=== PATIENT | female | born 1935 | race Caucasian/White ===

== ENCOUNTER 2017-02-28 13:21 | Observation (INO) | payer OTHER, MEDICAID ==
[2017-02-28 13:38] LABS: % IMMATURE GRANULYOCYTES 0.9 % (0.0-1.1); ABSOLUTE IMMATURE GRANULOCYTES 0.08 10^3/uL (0.00-0.10); ADD DIFF? NO; ADD MORPH? NO; ADD SCAN? NO; ATYPICAL LYMPHOCYTE FLAG 0 (0-99); FRAGMENT RBC FLAG 0 (0-99); HEMATOCRIT 38.7 % (38.0-47.0); HEMOGLOBIN 12.3 g/dL (12.6-16.3); LEFT SHIFT FLG 0 (0-99); LIPEMIA HEMOLYSIS FLAG 80 (0-99); MEAN CELL HEMOGLOBIN 27.8 pg (27.9-34.1); MEAN CELL HEMOGLOBIN CONCENTR. 31.8 g/dL (32.4-36.7); MEAN CELL VOLUME 87.6 fL (81.5-99.8); MEAN PLATELET VOLUME 9.7 fL (8.7-11.7); PLATELET CLUMPS FLAG 40 (0-99); PLATELET COUNT 240 10^3/uL (150-400); RED BLOOD CELL COUNT 4.42 10^6/uL (4.18-5.33); RED CELL DISTRIBUTION WIDTH 14.6 % (11.5-15.2)
--- NOTE | 2017-02-28 13:52 | CPEKG ---
Heart Rate: 59 RR Interval: 1017 P-R Interval: 152 QRSD Interval: 104 QT Interval: 440 QTC Interval: 436 P [place]: 60 QRS [place]: 32 T Wave [place]: 20 EKG Severity - NORMAL ECG - EKG Impression: SINUS RHYTHM Electronically Signed By: Mady De Leon 28-Feb-2017 14:56:10
--- NOTE | 2017-02-28 13:57 | EDPHY ---
H & P Stated Complaint: syncopal episode at lunch Time Seen by Provider: 02/28/17 13:28 HPI/ROS: CHIEF COMPLAINT: Possible syncope HISTORY OF PRESENT ILLNESS: 81 y/o female with a history of atrial fibrillation on Eliquis arriving with her daughters via EMS after a possible syncopal episode at rest this afternoon. Today she was sitting and reading the paper when she noticed her arms began to feel tired, but otherwise felt normal. She then does not remember anything until she regained consciousness on the floor. She immediately vomited, broke out in a cold sweat, and felt lightheaded following this loss of consciousness. She denies trauma from the event today or recent illness. She has a history that includes hypertension, PE, atrial fibrillation, and takes Topamax for prior syncopes or possible absence seizures. Her daughter notes she has been taking Robaxin for back pain and took at least one dose today. REVIEW OF SYSTEMS: Constitutional: see HPI Eyes: No visual changes ENT: No sore throat Respiratory: No cough, no shortness of breath Cardiac: No chest pain Gastrointestinal: see HPI Genitourinary: No hematuria, no dysuria Musculoskeletal: No leg pain or swelling Skin: No rash Neurological: see HPI Psychiatric: No depression - Personal History Current Tetanus Diphtheria and Acellular Pertussis (TDAP): Yes Tetanus Vaccine Date: OVER 10 YRS - Medical/Surgical History PMH: PMH includes: 1. Spinal stenosis 2. Hypertension 3. GERD 4. PE 5. Hypothyroidism 6. Arthritis 7. Kidney cancer 2012 - right partial nephrectomy 8. Osteopenia 9. Sleep apnea 10. Diastolic dysfunction 11. Falls 12. Seizure/syncopes without formal seizure diagnosis - Topamax 13. Right rotator cuff repair 14. Cholecystectomy 15. Atrial fibrillation - Eliquis Prior history obtained from patient's notes. Hx Asthma: Yes Hx Chronic Respiratory Disease: No Hx Diabetes: No Hx Cardiac Disease: Yes Hx Renal Disease: Yes Hx Cirrhosis: No Hx Alcoholism: No Hx HIV/AIDS: No Hx Splenectomy or Spleen Trauma: No Other PMH: PMH: GERD, spinal stenosis, HTN, PE, Arthritis, osteopenia, JOSEPHINE, Diastolic Dysfunction, Falls. Kidney ca with partial removal of right kidney. 2012. Atrial Fibrillation. PSH: Cholecystectomy, Appendectomy, Tonsilectomy. right shoulder surgery, right partial nephrectomy - Social History Smoking Status: Former smoker Additional Social History: Daughters at bedside. Former smoker. PCP: Dr. Andersen. Neurologist: Dr. Baker. - Physical Exam Exam: General Appearance: Alert, elderly, no distress, hypotensive at 96/58 Eyes: Pupils equal and round, no conjunctival pallor or injection ENT, Mouth: Mucous membranes moist Neck: Normal inspection Respiratory: Lungs are clear to auscultation Cardiovascular: Regular rate and rhythm Gastrointestinal: Abdomen is soft and non- tender Neurological: A&O, nonfocal, normal gait Skin: Warm and dry, no rash Extremities: Nontender, no pedal edema Psychiatric: Mood and affect normal Constitutional: Initial Vital Signs Temperature (C) 36.7 C 02/28/17 13:21 Heart Rate 63 02/28/17 13:21 Respiratory Rate 16 02/28/17 13:21 Blood Pressure 96/58 L 02/28/17 13:21 O2 Sat (%) 96 02/28/17 13:21 O2 Delivery Mode Room Air Allergies/Adverse Reactions: Iodinated Contrast- Oral and IV Dye [Iodinated Contrast Media - IV Dye] Allergy (Verified 04/30/15 11:40) CATS Allergy (Mild, Uncoded 04/30/15 11:40) SNEEZE/ITCHY NOSE ENVIRONMENTAL Allergy (Mild, Uncoded 04/30/15 11:40) RUNNY NOSE/SNEEZING Home Medications: Medication Instructions Recorded Aspirin [Aspirin 81mg (*)] 81 mg PO HS 02/07/14 Atorvastatin Calcium [Lipitor 40 40 mg PO DAILY 02/07/14 mg (*)] Carvedilol [Coreg (*)] 12.5 mg PO BIDMEAL 02/07/14 Cetirizine [ZyrTEC 10 mg (*)] 10 mg PO BID 02/07/14 Cholecalciferol Vit D3 [Vitamin D3 6,000 units PO DAILY 02/07/14 2000 units tab (OTC)] Hydrochlorothiazide [HCTZ (*)] 12.5 mg PO DAILY 02/07/14 Levothyroxine [Synthroid 88 mcg 88 mcg PO DAILY06 02/07/14 (*)] Lisinopril [Zestril 10 mg (*)] 10 mg PO DAILY 02/07/14 Pantoprazole Sodium [Protonix 40mg 40 mg PO DAILY 02/07/14 (*)] Topiramate 50 mg PO BID 02/07/14 buPROPion XL [Wellbutrin Xl] 300 mg PO DAILY 02/07/14 Apixaban [Eliquis] 2.5 mg PO BID 02/28/17 Ferrous Sulfate [Ferrous Sulf 325 325 mg PO DAILY 02/28/17 MG (*)] Herbals/Supplements -Info Only 1 ea PO DAILY 02/28/17 Liothyronine Sodium [Cytomel 5 mcg 5 mcg PO DAILY 02/28/17 (*)] Methocarbamol [Robaxin 500 mg (*)] 750 mg PO TID 02/28/17 Vitamin B Complex [B Complex] 1 each PO DAILY 02/28/17 Medical Decision Making - Diagnostics EKG Interpretation: EKG interpreted by me reveals normal sinus rhythm, no ST or T segment changes. Artifact present. Interpretation: Normal EKG ED Course/Re-evaluation: This patient presents after a true syncopal episode. Stat EKG reveals no evidence of ischemia or dysrhythmia. Upon assessment, she is asymptomatic and there is no sign of injury. Her exam is unremarkable. She is hypotensive at 96/ 58, which is unusual for her. IV normal saline 500 mL given by EMS. I've recommended admission for observation on telemetry given her concerning presentation and medical history, which the patient agrees to. Plan for IV and lab work. Dr. Gee's office paged. [id number]: Consulted with Janee Gaxiola for Dr. Gee, patient's leak hunter. She accepts admission to the PCU. The patient continued to be asymptomatic throughout her emergency department stay. reinsurance claims analyst revealed normal sinus rhythm throughout. Differential Diagnosis: Differential diagnosis includes though is not limited to cardiac dysrhythmia, CVA, TIA, GI bleed, sepsis, hypoglycemia. - Data Points Medications Given: Apixaban (Eliquis) 2.5 mg PO BID [facility] Stop: 08/27/17 20:59 Last Admin: 03/01/17 08:34 Dose: 2.5 mg Aspirin (Aspirin) 81 mg PO HS MER Stop: 08/27/17 20:59 Last Admin: 02/28/17 20:25 Dose: 81 mg Atorvastatin Calcium (Lipitor) 40 mg PO DAILY [facility] Stop: 08/28/17 08:59 Last Admin: 03/01/17 08:32 Dose: 40 mg Bupropion HCl (Wellbutrin Xl) 300 mg PO DAILY [facility] Stop: 08/28/17 08:59 Last Admin: 03/01/17 08:33 Dose: 300 mg Carvedilol (Coreg) 6.25 mg PO BIDMEAL [facility] Stop: 08/27/17 17:59 Last Admin: 03/01/17 10:12 Dose: 6.25 mg Cetirizine HCl (Zyrtec) 10 mg PO BID [facility] Stop: 08/27/17 20:59 Last Admin: 03/01/17 08:33 Dose: 10 mg Cholecalciferol (Vitamin D) 6,000 units PO DAILY [facility] Stop: 08/28/17 08:59 Last Admin: 03/01/17 08:32 Dose: 6,000 units Ferrous Sulfate (Ferrous Sulfate) 325 mg PO DAILY [facility] Stop: 08/28/17 08:59 Last Admin: 03/01/17 08:33 Dose: 325 mg Hydrochlorothiazide (Microzide) 12.5 mg PO DAILY [facility] Stop: 08/28/17 08:59 Last Admin: 03/01/17 08:34 Dose: 12.5 mg Levothyroxine Sodium (Synthroid) 88 mcg PO DAILY06 [facility] Stop: 08/28/17 05:59 Last Admin: 03/01/17 05:28 Dose: 88 mcg Liothyronine Sodium (Cytomel) 5 mcg PO DAILY [facility] Stop: 08/28/17 08:59 Last Admin: 03/01/17 08:33 Dose: 5 mcg Pantoprazole Sodium (Protonix) 40 mg PO DAILY [facility] Stop: 08/28/17 08:59 Last Admin: 03/01/17 08:33 Dose: 40 mg Senna/Docusate Sodium (Senokot-S) 1 - 2 tab PO BID [facility] PRN Reason: Protocol Stop: 08/27/17 20:59 Last Admin: 03/01/17 08:32 Dose: 2 tab Topiramate (Topamax) 50 mg PO BID [facility] Stop: 08/27/17 20:59 Last Admin: 03/01/17 08:33 Dose: 50 mg Vitamin B Complex (Vitamin B Complex) 1 ea PO DAILY [facility] Stop: 08/28/17 08:59 Last Admin: 03/01/17 08:32 Dose: 1 ea Discontinued Medications Carvedilol (Coreg) 12.5 mg PO BIDMEAL [facility] Stop: 08/27/17 17:59 Last Admin: 03/01/17 08:00 Dose: Not Given Departure - Departure Disposition: [facility] Inpatient Acute Clinical Impression: Syncope Qualifiers: Syncope type: unspecified Qualified Code(s): R55 - Syncope and collapse Condition: Fair Report Scribed for: Mady De Leon Report Scribed by: Mary Ugalde Date of Report: 02/28/17 Time of Report: 13:57 Physician Review and Approval Statement: 02/28/17 13:57 Portions of this note were transcribed by a medical appointment scheduler. I personally performed a history, physical exam, medical decision making, and confirmed accuracy of information the transcribed note.
[2017-02-28 14:15] LABS: ANION GAP 12 mEq/L (8-16); CARBON DIOXIDE 18 mEq/l (22-31); CHLORIDE 110 mEq/L (97-110); CREATININE 1.6 mg/dL (0.6-1.0); GLOMERULAR FILTRATION RATE 31; GLUCOSE 108 mg/dL (70-100); POTASSIUM 4.1 mEq/L (3.5-5.2); SODIUM 140 mEq/L (134-144)
[2017-02-28 14:28] LABS: TROPONIN I < 0.012 ng/mL (0-0.034)
[2017-02-28 14:42] LABS: CALCIUM 9.6 mg/dL (8.5-10.4)
--- NOTE | 2017-02-28 17:10 | SOAPPROG ---
SOAP Progress Note Assessment/Plan: Assessment: Plan: 02/28/17 17:31 Syncopal episode: Per pt, has had several syncopal episodes over her life. This episode occurred while pt sitting in chair, and subsequently associated with nausea, vomiting, diaphoresis, concerning for cardiac etiology, possible arrhythmia, though sx have resolved. EKG was normal in ED. No hx of cardiac arrhythmia, though it is appropriate for her to be on telemetry. Initial troponin negative. She does have a hx of CAD with coronary calcium score of 443 in 08/09. Score was very stable at that time. Her last echo was in 2014, so will recheck that, given hx of diastolic dysfunction. No suggestion of CHF on exam today. Other possible etiology for her sx may be over use of robaxin, and possible mild dehydration. Hypothyroidism: on replacement Sleep apnea: on CPAP, and RN has contacted daughter to bring in her machine CAD: stable heart disease, as noted above Hx PE: on Eliquis. Has not tolerated higher dose due to epistaxis Hypertension: well controlled on lisinopril, hctz CHF: clinically no suggestion of CHF. States her diuretic dose varies, and is currently taking hctz 25mg 1/2 tab daily. Depression: stable on fluoxetine, bupropion Hyperlipidemia: on atorvastatin, welchol Chronic kidney disease: creatinine slightly higher than usual. Pt encouraged to drink more. Back pain/immobility: recently placed on Robaxin for thoracic back pain. Was referred to [facility] but hasn't followed up. Interested in PT/OT assessment while here in hospital, and possible home PT on discharge. Will hold Robaxin for now. Recurrent UTI: on nitrofurantoin suppressive dose DVT prophylaxis: on Eliquis 02/28/17 17:55 Subjective: 81 yo woman with multiple medical problems was sitting in her chair, reading the paper. Noticed her arms feeling tired, heavy, and then the next thing she knew was that her caregiver was trying to get her to wake up. Didn't fall out of her chair, but caregiver came out of bedroom after making bed and found her slumped over in her chair. Pt woke, was in a cold sweat, and felt nauseated, dizzy. Vomited. 911 called. Per pt, BP was low in ambulance, and she vomited en route to the hospital. She hasn't had any further nausea, vomiting, diaphoresis. She denies any chest pain, irregular heart rhythms. She felt somewhat short of breath, but that has resolved. She still feels slightly dizzy and drained. Lives alone. Has caregivers who are with her from 10-4 daily 6 days per week. She is somewhat ambulatory with a walker, but mostly spends her time sitting. She has had syncopal episodes in the past, and is on topiramate, though has not been diagnosed with seizure disorder. She hasn't had a syncopal episode in several years. Of note, she was recently placed on robaxin 500mg 1.5 tablets 3 times daily, but states she has been taking it every 4 hours for the last 3 days. She has been feeling a little dopey, out of it, but it has helped her back pain. In ED, labs were minimally abnormal. Hgb was slightly low at 12.3, hct normal. BUN 39, creatinine 1.6, which is slightly higher than usual for her. With her chronic kidney disease and her diastolic dysfunction, fluid balance is tricky. She has been advised to drink 64 oz daily, and hadn't been drinking that much in the last couple of days. EKG showed normal sinus rhythm, rate 59. Troponin was negative. Objective: Vital Signs Temp Pulse Resp BP Pulse Ox 36.8 C 61 17 115/48 L 97 02/28/17 15:08 02/28/17 15:08 02/28/17 15:08 02/28/17 15:08 02/28/17 15:08 Laboratory Results 02/28/17 Unknown 02/28/17 Unknown General: obese woman, comfortable, alert HEENT: PERRL, EOMI without nystagmus. O/P without erythema, lesions. Neck: no masses, adenopathy. Thyroid not enlarged, no tenderness. No carotid bruits Lungs: clear bilaterally Cardiovascular: RRR with 2/6 systolic murmur LUSB Abdomen: +bowel sounds, soft, NT. No hepatosplenomegaly, masses Extremities: no clubbing, cyanosis, edema. Bruising noted on shins Neurologic: alert, moving all extremities Psychiatric: pleasant, cooperative, normal mood, affect ICD10 Worksheet Patient Problems: Problems Problem Status Onset Syncope Acute renal cell carcinoma Active
[2017-02-28] MEDS ORDERED: ONDANSETRON DISINTEGRATING 4 MG TAB PO PRN (17:46)
[2017-02-28] MEDS ORDERED: MAGNESIUM HYDROXIDE 30 ML UDCUP PO PRN (17:46)
[2017-02-28] MEDS ORDERED: LACTULOSE 20 GM/30 ML UDCUP PO PRN (17:46)
[2017-02-28] MEDS ORDERED: ONDANSETRON 4 MG/2 ML VIAL IVP PRN (17:46)
[2017-02-28] MEDS ORDERED: BISACODYL 10 MG SUPP PR PRN (17:46)
[2017-02-28] MEDS ORDERED: POLYETHYLENE GLYCOL 3350 17 GM PKT PO PRN (17:46)
[2017-02-28] MEDS ORDERED: ACETAMINOPHEN 325 MG TAB PO PRN (17:46)
--- NOTE | 2017-02-28 19:14 | GHP ---
[f rep st] HISTORY AND PHYSICAL DATE OF ADMISSION: 02/28/2017 HISTORY OF PRESENT ILLNESS: The patient is an 81-year-old woman with a history of multiple medical problems, who was sitting at home in her chair reading the paper. She began to notice that her arms were feeling tired and heavy, and then the next thing she knew, she woke up to her caregiver trying to wake her up. She had not fallen out of her chair, but her caregiver had come out of the bedroom after making the bed and found her slumped over in her chair. When she awoke up, she was in a cold sweat and felt nauseated and dizzy. She vomited, 911 was called. Per patient, her blood pressure was low in the ambulance, and she vomited on route to the hospital. She has not had further nausea, vomiting , or diaphoresis. She denies any chest pain or irregular heart rhythms. She felt somewhat short of breath, but that has resolved. She is still feeling slightly dizzy and drained. She lives alone. She has caregivers who are with her from 10 to 4 p.m. daily 6 days per week. She is somewhat ambulatory with a walker, but mostly spends her time sitting. She has had several syncopal episodes in the past and is on topiramate, though has not been diagnosed with a seizure disorder. She has not had a syncopal episode in several years. Of note, she was recently placed on Robaxin 500 mg 1- 1/2 tablets 3 times daily, but states that she has been taking it every 4 hours for the last 3 days. She has been feeling a little dopey and out of it, but it has helped her back pain. In the Emergency Department, her labs were minimally abnormal with a hemoglobin that was slightly low at 12.3, hematocrit was normal, BUN was 39, creatinine was 1.6, which is slightly higher than usual for her. With her chronic kidney disease and her diastolic dysfunction, fluid balance is tricky. She has been advised to drink 64 ounces of fluids daily, and had not been drinking that much in the last couple of days. EKG showed normal sinus rhythm with a rate of 59. Initial troponin was negative. PAST MEDICAL HISTORY: 1. Sleep apnea. 2. Asthma. 3. Hyperlipidemia. 4. Hypertension. 5. Hypothyroidism. 6. Pulmonary emboli. 7. Depression. 8. Coronary artery disease. 9. Chronic kidney disease. 10. Congestive heart failure with diastolic dysfunction. MEDICATIONS: Fluoxetine 20 mg daily, Levoxyl 88 mcg daily, Cytomel 5 mcg daily , hydrochlorothiazide 25 mg 1/2 tablet daily, nitrofurantoin macro crystal 50 mg daily, Creon 12,000 units 2 capsules 3 times daily, carvedilol 12.5 mg twice daily, Protonix 40 mg daily, lisinopril 10 mg daily, bupropion 300 mg sustained release daily, Eliquis 2.5 mg twice a day, Welchol 3.75 g once daily, Atorvastatin 40 mg daily, topiramate 50 mg twice a day, Robaxin 500 mg 1.5 tablets 3 times daily, cranberry extract 250 mg 2 tablets daily, Lorazepam 1 mg p.r.n., aspirin 81 mg daily, krill oil daily, vitamin D daily, vitamin K daily, B complex daily, iron daily, stool softener daily, and magnesium daily. ALLERGIES: Cipro causes pruritus and possibly Meridia. PAST SURGICAL HISTORY: Partial nephrectomy for renal cell carcinoma, tonsillectomy, appendectomy, endometrial tumor excision, tubal ligation, cholecystectomy, right shoulder rotator cuff repair. FAMILY HISTORY: Her mother had uterine cancer at the age of 83. SOCIAL HISTORY: She is retired and lives alone. She has 4 children. She does have caregivers who come in from 10 to 4 p.m. 6 days per week. She is a former smoker. REVIEW OF SYSTEMS: GENERAL: No fever or chills. She has had a gradual substantial weight loss over the last several years. HEENT: No rhinitis or sore throat. Complaining of mild residual dizziness from earlier today, though much improved. RESPIRATORY: Dry cough for weeks, though this is also improving. Mild shortness of breath as per HPI. CARDIOVASCULAR: No chest pain or abnormal heart rhythms. No lower extremity edema. She is minimally active. Recent nausea, vomiting, diaphoresis as per HPI have resolved. GASTROINTESTINAL: Nausea and vomiting as per HPI. Mild lower abdominal discomfort earlier today has resolved. No diarrhea or constipation. GENITOURINARY: No dysuria. MUSCULOSKELETAL: Thoracic back pain. NEUROLOGIC: The patient reports poor balance with a history of falls. Walks with a walker. PSYCHIATRIC: Depression is stable on medication. LABS: Hemoglobin of 12.3, hematocrit 38.7, platelet count 240, sodium 140, potassium 4.1, chloride 110, bicarb 18, BUN 39, creatinine 1.6, troponin less than 0.012. Vital Signs: BP 115/48 heart rate 61 respiratory rate 17 O2 saturation 97% RA temp 36.8 C Physical Exam General: obese woman, well-appearing, comfortable, alert HEENT: PERRL, EOMI without nystagmus. Oropharynx without erythema, exudate, lesions Neck: no masses, adenopathy. Thyroid not enlarged, non-tender. No carotid bruits Lungs: clear to auscultation bilaterally Cardiovascular: RRR with 2/6 systolic murmur LUSB Abdomen: bowel sounds present, soft, non-distended, non-tender. No hepatosplenomegaly or masses palpable Extremities: no clubbing, cyanosis, edema. Ecchymoses noted on both lower extremities Psychiatric: pleasant, cooperative, with normal mood, affect ASSESSMENT AND PLAN: 1. Syncopal episode. Per patient, she has had several syncopal episodes over the course of her life. This episode occurred while she was sitting in a chair , and was subsequently associated with nausea, vomiting, and diuresis. Concerning for cardiac etiology, such as a possible arrhythmia, although her symptoms have resolved. Her EKG was normal in the ED. There is no history of cardiac arrhythmia, though it is appropriate for her to be on telemetry for monitoring. Her initial troponin was negative. She has a history of coronary artery disease with a coronary calcium score of 443 in July of 2015. Her score was very stable at that time. She has not had it repeated since then. Her last echo was in 2014. So, will recheck that given her history of diastolic dysfunction. There is no suggestion of CHF on exam today. Other possible etiologies for her symptoms may be the overuse of Robaxin and possibly mild dehydration. 2. Hypothyroidism, currently euthyroid, on replacement. 3. Sleep apnea. She is on CPAP. RN has contacted her daughter to bring in her machine. 4. Coronary artery disease. Stable heart disease as noted above. 5. History of pulmonary emboli, on Eliquis. She has not tolerated higher doses due to epistaxis. 6. Hypertension, currently well controlled on lisinopril/hydrochlorothiazide. 7. Congestive heart failure. Clinically no suggestion of CHF. Does state that her diuretic dose varies, and is currently taking hydrochlorothiazide 12.5 mg daily. We will go ahead and check BNP. 8. Depression, stable on fluoxetine and bupropion. 9. Hyperlipidemia, on atorvastatin and Welchol. 10. Chronic kidney disease. Creatinine is slightly higher than usual. We will encourage her to drink more fluids. 11. Back pain/immobility. Recently placed on Robaxin for thoracic back pain. She was referred to [facility], but has not followed up. Is interested in PT/OT assessment while here in hospital, and possible home PT on discharge. We will hold Robaxin for now. 12. Recurrent urinary tract infection, on nitrofurantoin suppressive dose. 13. Deep vein thrombosis prophylaxis, on Eliquis. /[id number]/MODL MTDD
[2017-02-28 19:28] LABS: TROPONIN I < 0.012 ng/mL (0-0.034)
[2017-02-28] MEDS: CARVEDILOL 6.25 MG TAB PO SCH (20:21)
[2017-02-28] MEDS: ASPIRIN 81 MG CHEWABLE TAB PO SCH (20:25)
[2017-02-28] MEDS: CETIRIZINE 10 MG TAB PO SCH (20:25)
[2017-02-28] MEDS: APIXABAN 2.5 MG TAB PO SCH (20:26)
[2017-02-28] MEDS: TOPIRAMATE 25 MG TAB PO SCH (20:26)
[2017-02-28] MEDS: SENNOSIDES/DOCUSATE SODIUM TAB PO SCH (20:27)
[2017-02-28] MEDS ORDERED: NON-FORMULARY NEW DRUG (Topiramate [Topiramate] 50 MG) PO SCH (21:00)
[2017-03-01 04:54] LABS: ANION GAP 7 mEq/L (8-16); CARBON DIOXIDE 19 mEq/l (22-31); CHLORIDE 113 mEq/L (97-110); CREATININE 1.4 mg/dL (0.6-1.0); GLOMERULAR FILTRATION RATE 36; GLUCOSE 101 mg/dL (70-100); POTASSIUM 4.6 mEq/L (3.5-5.2); SODIUM 139 mEq/L (134-144)
[2017-03-01] MEDS ORDERED: LEVOTHYROXINE 88 MCG TAB PO SCH (06:00)
[2017-03-01] MEDS: CARVEDILOL 6.25 MG TAB PO SCH ×3 (08:00→17:18)
[2017-03-01] MEDS: SENNOSIDES/DOCUSATE SODIUM TAB PO SCH ×2 (08:32→20:05)
[2017-03-01] MEDS: TOPIRAMATE 25 MG TAB PO SCH ×2 (08:33→20:04)
[2017-03-01] MEDS: CETIRIZINE 10 MG TAB PO SCH ×2 (08:33→20:04)
[2017-03-01] MEDS: APIXABAN 2.5 MG TAB PO SCH ×2 (08:34→20:04)
--- NOTE | 2017-03-01 08:38 | SOAPPROG ---
SOAP Progress Note Assessment/Plan: Assessment: 81 yo female admitted for observation following possible syncopal episode vs seizure vs fell asleep with untreated JOSEPHINE, found in chair unresponsive by caregiver. Woke up with vigorous stimuli and was confused, vomited. Found to be in SR on admit. Remained in SR over night with vitals stable, slightly hypotensive with SBP in 90s, though asymptomatic. Plan: Echocardiogram today to eval cardiac output. Also will check MRI of brain given hx of renal cell carcinoma r/o mets to brain. If unremarkable will plan for discharge home this afternoon and outpatient EEG. 03/01/17 08:38 Subjective: Kandis is resting comfortably in bed this morning. She denies any chest pain, palpitations, dizziness, lightheadedness, or further syncopal episodes since admission. Overall she says she is feeling well. Objective: Vital Signs Temp Pulse Resp BP Pulse Ox 99.5 F 65 10 L 94/52 L 97 03/01/17 07:42 03/01/17 07:42 03/01/17 07:42 03/01/17 07:42 03/01/17 07:42 Laboratory Results 02/28/17 Unknown 03/01/17 04:20 02/28/17 03/01/17 03/02/17 05:59 05:59 05:59 Intake Total 85 Balance 85 Gen- AAOx3, vitals stable over night, slightly hypotensive this AM- 94/52, HR 65 , asymptomatic. Head- normocephalic, atraumatic CV- grade II holosystolic murmur, S1, S2, RRR Resp- LCTAB, no rhonchi, rales, wheezes GI- positive bowel sounds Skin- warm, dry, intact Neuro- grossly intact Psych- normal mental status, normal mood and affect ICD10 Worksheet Patient Problems: Problems Problem Status Onset Syncope Acute renal cell carcinoma Active
[2017-03-01] MEDS ORDERED: HYDROCHLOROTHIAZIDE 12.5 MG CAP PO SCH (09:00)
[2017-03-01] MEDS ORDERED: ATORVASTATIN CALCIUM 40 MG TAB PO SCH (09:00)
[2017-03-01] MEDS ORDERED: CHOLECALCIFEROL VIT D3 2,000 UNITS TAB/CAP PO SCH (09:00)
[2017-03-01] MEDS ORDERED: LIOTHYRONINE SODIUM 5 MCG TAB PO SCH (09:00)
[2017-03-01] MEDS ORDERED: FERROUS SULFATE 325 MG TAB PO SCH (09:00)
[2017-03-01] MEDS ORDERED: Herbals/Supplements -Info Only PO SCH (09:00)
[2017-03-01] MEDS ORDERED: VITAMIN B COMPLEX 1 EA CAP/TAB PO SCH (09:00)
[2017-03-01] MEDS ORDERED: buPROPion XL 150 MG TAB PO SCH (09:00)
[2017-03-01] MEDS ORDERED: PANTOPRAZOLE SODIUM 40 MG TAB PO SCH (09:00)
--- NOTE | 2017-03-01 11:31 | ECHO ---
[id number] + + [address] : : [place] [address] : : [phone] + + Adult Echocardiographic Report + -----+ :Name: JOSE RAMON Cameronjoe Date: 03/01/2017 09:15 AM : : Hospital Admission Number: [id number] Location : 213: :: 1935 Gender: Female Height: 64 in : :Age: 81 yrs Race: WH Weight: 182 lb : :Reason For Study: Syncope : : BSA: 1.9 meters2 : + -----+ MMode/2D Measurements \T\ Calculations IVSd: 0.95 cm LVIDd: 4.5 cm FS: 48.0 % Ao root diam: LVPWd: 1.1 cm LVIDs: 2.3 cm EDV(Teich): 2.9 cm 92.8 ml LA dimension: ESV(Teich): 3.5 cm 19.0 ml EF(Teich): 79.6 % LVLd ap4: 8.0 cm SV(MOD-sp4): EDV(MOD-sp4): 40.0 ml 57.0 ml LVLs ap4: 6.0 cm ESV(MOD-sp4): 17.0 ml EF(MOD-sp4): 70.2 % Normal Measurement Values: + + :LVIDd (3.5-5.7cm) IVSd (0.6-1.1cm) LVPWd (0.6-1.1cm) Aortic Root (2.0-3.7cm)Left Atrium (1.5-4.0cm): :LV Vol(d) (76-115ml) LV Vol(s) (29-48ml) Ejec Fraction (50-65%)PV Eyad (0.6- 1.2m/s) TV Eyad (0.4-1.0m/s) : :MV E Eyad (0.8-1.0m/s)MV A Eyad (0.3-1.0m/s)LVOT Eyad (0.7-1.2m/s) Asc Ao Eyad ( 0.9-1.8m/s) : + + Doppler Measurements \T\ Calculations MV E max eyad: 86.9 cm/sec Ao V2 max: 118.0 cm/sec LV V1 mean P.6 mmHg MV A max eyad: 110.1 cm/sec Ao max P.6 mmHg LV V1 mean: 58.9 cm/sec MV E/A: 0.79 Ao mean P.4 mmHg LV V1 VTI: 21.4 cm Ao V2 mean: 153.4 cm/sec Ao V2 VTI: 46.5 cm Left Ventricle The left ventricle is normal in size. There is mild concentric left ventricular hypertrophy. The left ventricle is hyperdynamic. Ejection Fraction = 70-75%. No regional wall motion abnormalities noted. Right Ventricle The right ventricle is normal in size and function. Atria The left atrial size is normal. Right atrial size is normal. The interatrial septum is intact with no evidence for an atrial septal defect. Mitral Valve There is mild mitral annular calcification. There is no evidence of mitral valve prolapse. There is no mitral valve stenosis. There is trace mitral regurgitation. Tricuspid Valve Normal tricuspid valve. Aortic Valve The aortic valve opens well. There is no aortic stenosis. Mild aortic regurgitation. Pulmonic Valve The pulmonic valve is normal in structure and function. There is no pulmonic valvular regurgitation. Great Vessels The aortic root is normal size. Pericardium/Pleural There is no pericardial effusion. Conclusion A complete two-dimensional transthoracic echocardiogram was performed (2D, M-mode, Doppler and color flow Doppler). There is mild concentric left ventricular hypertrophy. The left ventricle is hyperdynamic. Ejection Fraction = 70-75%. There is mild mitral annular calcification. There is trace mitral regurgitation. Mild aortic regurgitation. Final Reading Physician: Brennon Mora signed on 03/01/2017 11:29 AM Ordering Physician: Janee Gaxiola Performed By: Marilyn Leonardo RDCS
[2017-03-01 16:15] VITALS: TEMP 98.2
[2017-03-01 16:16] VITALS: BP 125/61; PULSE 65; RESP 19; O2SAT 98
[2017-03-01] MEDS: ASPIRIN 81 MG CHEWABLE TAB PO SCH (20:05)
--- NOTE | 2017-03-02 11:30 | GDS ---
[f rep st] DISCHARGE SUMMARY ADMISSION DIAGNOSIS: Possible syncopal episode. DISCHARGE DIAGNOSIS: Possible syncopal episode. ADDITIONAL DIAGNOSIS: Hypotension. HOSPITAL COURSE: The patient was admitted and was found to have low blood pressure. Her syncopal ep isode was of uncertain quality, as she was found asleep versus unconscious in her chair and was conf used and somewhat nauseous upon being awakened by her aide with shaking. She does have a history of syncope due to seizure disorder that has been controlled with Topamax over the years. She does have sleep apnea and fell asleep without her CPAP in her chair, and this may have been associated with so me of her post episode confusion. Under any circumstance, she regained consciousness fairly quickly , and was admitted to the hospital. Heart attack was excluded with troponins. She had normal sinus r hythm in the ER and on the floor. She felt fine. Her Carvedilol was reduced from 12.5 mg twice a day to 6.25 mg twice a day. Her blood pressure went up to 124 systolic. She was comfortable. She is mov ing around. No evidence of lightheadedness or syncope. She is being discharged to home. DISCHARGE MEDICATIONS: Zyrtec 10 mg b.i.d., bupropion 300 mg daily, cholecalciferol 2000 units 3 da cody, topiramate 50 mg b.i.d., pantoprazole 40 mg daily, Zestril 10 mg daily, levothyroxine 88 mcg da cody, hydrochlorothiazide 12.5 mg daily, atorvastatin 40 mg daily, levothyroxine 5 mcg daily, Eliqui s 2.5 mg b.i.d., ferrous sulfate 325 mg daily. She takes vitamin B complex and herbals. I will stop her aspirin and I will stop her Robaxin, as that was recently started for back pain, and this is kenneth ething new prior to her syncopal episode. She had no complaints of her back pain during the hospital ization, and I would like to keep her from having more complications if the Robaxin had anything to do with her admissions. FOLLOWUP: She will follow up in the office in a week. /[id number]/MODL
== END 2017-03-01 20:25 | disposition home or self-care (01) ==
LOC: EDUNIT# → F2W 14:54
PROVIDERS: ADMIT Internal Medicine; ATTEND Internal Medicine
DX: R55 Syncope and collapse (principal); I95.9 Hypotension, unspecified; I11.0 Hypertensive heart disease with heart failure; I25.10 Atherosclerotic heart disease of native coronary artery without angina pectoris; K21.9 Gastro-esophageal reflux disease without esophagitis; J45.909 Unspecified asthma, uncomplicated; G47.39 Other sleep apnea; N18.9 Chronic kidney disease, unspecified; I50.30 Unspecified diastolic (congestive) heart failure; I48.91 Unspecified atrial fibrillation; Z87.891 Personal history of nicotine dependence; Z79.01 Long term (current) use of anticoagulants
CPT/HCPCS: 70551; 93005; 93306; 97161; 97165; G0378; G8978; G8979; G8987; G8988

== ENCOUNTER 2017-03-26 16:47 | Emergency (ER) | payer OTHER, MEDICAID ==
[2017-03-26 16:57] VITALS: RESP 18; TEMP 98.4
--- NOTE | 2017-03-26 17:00 | EDPHY ---
H & P Time Seen by Provider: 03/26/17 16:49 HPI/ROS: 81-year-old female presents complaining of bee sting to her left foot yesterday now with swelling and redness. She did not have access to Benadryl. She denies fevers or chills. She is not a diabetic. Review of systems As per HPI General no fever no chills no weakness HEENT no eye pain no eye discharge. No eye redness, no sore throat Respiratory no cough, no shortness of breath Cardiac no chest pain, no peripheral edema GI no abdominal pain, no diarrhea, no constipation, no nausea, no vomiting no flank pain, no hematuria, no dysuria Musculoskeletal no myalgias, no joint pain Heme no easy bruising, no easy bleeding Endo no polyuria, no polydipsia Skin positive rashes, no pruritus Neuro no syncope, no dizziness, no headaches Psych is no suicidal ideation, no homicidal ideation Past Medical/Surgical History: Hypertension, hyperlipidemia, GERD, hypothyroidism Social History: Denies alcohol or drug use Lives independently Smoking Status: Former smoker Physical Exam: Alert 81-year-old female and oriented in no acute distress nontoxic appearance, afebrile Atraumatic normocephalic Neck no JVD Lungs clear to auscultation, no respiratory distress Heart regular rate and rhythm Extremities no cyanosis clubbing edema Left foot-mild erythema and edema at distal lateral aspect of dorsum of left foot involving 4th and 5th small toe No fluctuance, no vesicles, no lymphangitic streaks Constitutional: Initial Vital Signs Temperature (C) 36.9 C 03/26/17 16:53 Heart Rate 93 03/26/17 16:53 Respiratory Rate 18 03/26/17 16:53 Blood Pressure 187/82 H 03/26/17 16:53 O2 Sat (%) 95 03/26/17 16:53 O2 Delivery Mode Room Air Allergies/Adverse Reactions: Iodinated Contrast- Oral and IV Dye [Iodinated Contrast Media - IV Dye] Allergy (Verified 04/30/15 11:40) CATS Allergy (Mild, Uncoded 04/30/15 11:40) SNEEZE/ITCHY NOSE ENVIRONMENTAL Allergy (Mild, Uncoded 04/30/15 11:40) RUNNY NOSE/SNEEZING Home Medications: Medication Instructions Recorded Atorvastatin Calcium [Lipitor 40 40 mg PO DAILY 07 mg (*)] Cetirizine [ZyrTEC 10 mg (*)] 10 mg PO BID 02/07/14 Cholecalciferol Vit D3 [Vitamin D3 6,000 units PO DAILY 02/07/14 2000 units tab (OTC)] Hydrochlorothiazide [HCTZ (*)] 12.5 mg PO DAILY 02/07/14 Levothyroxine [Synthroid 88 mcg 88 mcg PO DAILY06 02/07/14 (*)] Lisinopril [Zestril 10 mg (*)] 10 mg PO DAILY 02/07/14 Pantoprazole Sodium [Protonix 40mg 40 mg PO DAILY 02/07/14 (*)] Topiramate 50 mg PO BID 02/07/14 buPROPion XL [Wellbutrin 150mg XL] 300 mg PO DAILY 02/07/14 Apixaban [Eliquis] 2.5 mg PO BID 02/28/17 Ferrous Sulfate [Ferrous Sulf 325 325 mg PO DAILY 02/28/17 MG (*)] Herbals/Supplements -Info Only 1 ea PO DAILY 02/28/17 Liothyronine Sodium [Cytomel 5 mcg 5 mcg PO DAILY 02/28/17 (*)] Vitamin B Complex [B Complex] 1 each PO DAILY 02/28/17 Acetaminophen [Tylenol 325mg (*)] 650 mg PO Q4HRS PRN #0 tab 03/01/17 Carvedilol [Coreg (*)] 6.25 mg PO BIDMEAL #60 tab 03/01/17 Polyethylene Glycol 3350 [Miralax 17 gm PO DAILY PRN #0 pkt 03/01/17 17 gm (*)] Sennosides/Docusate Sodium 1 - 2 tab PO BID #0 tab 03/01/17 [Senokot-S] Famotidine [Pepcid 20 MG (*)] 20 mg PO BID #10 tab 03/26/17 diphenhydrAMINE [Benadryl 25 MG 25 mg PO Q6 PRN #20 tab 03/26/17 (*)] predniSONE 20 mg PO DAILY #3 tab 03/26/17 Medical Decision Making ED Course/Re-evaluation: Patient seen and evaluated for left foot bee sting Impression Local allergic reaction to bee sting on dorsum of left foot Plan Ice Diphenhydramine 25 Q 6 p.r.n. redness itching Famotidine 20 mg p.o. twice daily x5 days 1st dose here Prednisone 20 mg p.o. daily x4 days, 1st dose here Return if worsening Follow-up with PCP - Data Points Medications Given: Discontinued Medications Diphenhydramine HCl (Benadryl) 25 mg PO EDNOW ONE Stop: 03/26/17 17:11 Last Admin: 03/26/17 17:24 Dose: 25 mg Famotidine (Pepcid) 20 mg PO EDNOW ONE Stop: 03/26/17 17:13 Last Admin: 03/26/17 17:24 Dose: 20 mg Prednisone (Prednisone) 20 mg PO EDNOW ONE Stop: 03/26/17 17:14 Last Admin: 03/26/17 17:24 Dose: 20 mg Departure - Departure Disposition: Home, Routine, Self-Care Clinical Impression: Insect sting allergy, current reaction Condition: Good Instructions: Insect Bite or Sting (ED) Referrals: Rod Gee MD [Primary Care Provider] - As per Instructions Prescriptions: diphenhydrAMINE [Benadryl 25 MG (*)] 25 mg PO Q6 PRN #20 tab PRN Reason: Itching Famotidine [Pepcid 20 MG (*)] 20 mg PO BID #10 tab predniSONE 20 mg PO DAILY #3 tab
[2017-03-26] MEDS ORDERED: diphenhydrAMINE 25 MG CAP PO ONE (17:10)
[2017-03-26] MEDS ORDERED: FAMOTIDINE 20 MG TAB PO ONE (17:12)
[2017-03-26] MEDS ORDERED: predniSONE 20 MG TAB PO ONE (17:13)
[2017-03-26 17:33] VITALS: BP 147/85; PULSE 72; O2SAT 97
== END 2017-03-26 17:32 | disposition home or self-care (01) ==
LOC: CED 16:47
DX: T63.441A Toxic effect of venom of bees, accidental (unintentional), initial encounter (principal); I10 Essential (primary) hypertension; Z87.891 Personal history of nicotine dependence